=== PATIENT | male | born 1940 | race Caucasian/White ===

== ENCOUNTER → 2018-04-17 | Outpatient (CLI) | payer OTHER | LOC: FIMAGING 09:54 → EDSTATUS 09:56 | PROVIDERS: ATTEND Family Medicine | DX: R09.02 Hypoxemia (principal); J44.9 Chronic obstructive pulmonary disease, unspecified; I51.7 Cardiomegaly; R91.8 Other nonspecific abnormal finding of lung field; Z87.891 Personal history of nicotine dependence ==